=== PATIENT | male | born 1950 | race Hispanic/Latino ===

== ENCOUNTER 2020-04-04 06:35 | Day surgery (SDC) | payer OTHER ==
[2020-04-01 09:58] VITALS: BP 114/64
[2020-04-01 12:58] LABS: BASOPHILS % (AUTO) 0.7 % (0.0-5.0); EOSINOPHILS % (AUTO) 3.5 % (0.0-8.0); HEMATOCRIT 45.2 % (42-54); LYMPHOCYTES % (AUTO) 32.6 % (21.0-51.0); MEAN CORPUSCULAR HEMOGLOBIN 28.8 pg (27.0-33.0); MEAN CORPUSCULAR HGB CONC 32.5 g/dL (32.0-36.0); MEAN CORPUSCULAR VOLUME 88.5 fL (79-99); MONOCYTES % (AUTO) 7.7 % (3.0-13.0); NEUTROPHILS % (AUTO) 55.3 % (40.0-77.0); PLATELET COUNT (AUTO) 177 K/uL (130-400); RED BLOOD CELL COUNT(AUTO) 5.11 MIL/uL (4.50-6.20); RED CELL DISTRIBUTION WIDTH 12.3 % (11.0-15.5); WHITE BLOOD COUNT (AUTO) 4.6 K/uL (4.8-10.8)
[2020-04-01 13:07] LABS: CREATININE 0.8 mg/dL (0.5-1.5); POTASSIUM 4.3 mmol/L (3.5-5.1)
[~2020-04-04] VITALS: Ht 167.6 cm; Wt 80.5 kg
[2020-04-04] VITALS (19 sets, daily range): BP systolic 117–142; BP diastolic 62–79
[2020-04-04] MEDS ORDERED: LACTATED RINGERS 1000ML 1,000 ML IV ONE (06:43)
[2020-04-04] MEDS: CEFTRIAXONE SODIUM 1 GM IVP SCH ×2 (06:47→08:25)
[2020-04-04] MEDS ORDERED: SUCCINYLCHOLINE 200MG/10ML SYR ONE (07:51)
[2020-04-04] MEDS ORDERED: PROPOFOL 10 MG/ML 20ML VIAL IV ONE (07:51)
[2020-04-04] MEDS ORDERED: LIDOCAINE PF 2% 5ML ABBOJECT ONE (07:51)
[2020-04-04] MEDS ORDERED: ROCURONIUM 10MG/1ML SYR 10 MG/ML ML ONE (07:51)
[2020-04-04] MEDS ORDERED: FENTANYL CITRATE PF 50 MCG/1 ML 2ML VIAL ONE (07:51)
[2020-04-04] MEDS ORDERED: NEOSTIGMINE 5MG/5ML SYR IV ONE (09:40)
[2020-04-04] MEDS ORDERED: OPIUM/BELLADONNA ALKALOIDS 1 EACH SUPP.RECT RC ONE (09:40)
[2020-04-04] MEDS ORDERED: GLYCOPYRROLATE 1 MG/5 ML SYRINGE ONE (09:40)
[2020-04-04] MEDS ORDERED: ONDANSETRON HCL 4 MG/2 ML VIAL ONE (09:54)
[2020-04-04] MEDS ORDERED: KETOROLAC TROMETHAMINE 30MG/ML ONE (09:54)
[2020-04-04] MEDS ORDERED: ATOR40TA69 PO (09:57)
[2020-04-04] MEDS ORDERED: PHENAZOPYRIDINE HCL 200 MG TABLET ONE (10:36)
--- NOTE | 2020-04-04 11:15 | NUR ---
ASSESSMENT RECEIVED PT FROM PACU STAFF SAMM PAUL. PT DOING WELL. 18 CRO[address] GAMBOA DRAINING TO BEDSIDE BY GRAVITY. CLEAR RED URINE IN BAG. DENIES ANY PAIN. DAUGHTER AT BEDSIDE.
--- NOTE | 2020-04-04 12:15 | NUR ---
DISCHARGE ORAL AND WRITTEN DISCHARGE INSTRUCTIONS GIVEN TO PT AND PTS DAUGHTER ALONG WITH PRESCRIPTION. DEMONSTRATION GIVEN TO PTS DAUGHTER ON CHANGING GAMBOA BAG TO LEG BAG USING ASEPTIC TECHNIQUE. PTS DAUGHTER VERBALIZED UNDERSTANDING.
== END 2020-04-04 12:25 | disposition home or self-care (01) ==
LOC: DAH 06:35
PROVIDERS: ATTEND Urology
DX: N40.1 Benign prostatic hyperplasia with lower urinary tract symptoms (principal); Z20.828 Contact with and (suspected) exposure to other viral communicable diseases; N13.8 Other obstructive and reflux uropathy; R35.1 Nocturia; N35.912 Unspecified bulbous urethral stricture, male; N32.89 Other specified disorders of bladder; Z98.890 Other specified postprocedural states; Z79.899 Other long term (current) drug therapy; Z86.19 Personal history of other infectious and parasitic diseases
CPT/HCPCS: 36415; 52648; 80048; 85025; 93005; A4215; A4221; A4222; A4223; A4340; A4354; A4358 ×2; A4510; A4600; A4663; A6260; C9803; J0330; J0696; J1885; J2001; J2405; J2704; J2710; J3010; J3490; J7120 ×2; U0003